=== PATIENT | female | born 1950 | race Caucasian/White ===

== ENCOUNTER 2020-08-21 04:32 | Emergency (ER) | payer MEDICARE, BC ==
[2020-08-21] MEDS ORDERED: Sodium Chloride 0.9% 1,000 ML IV SCH (05:00)
[2020-08-21] MEDS ORDERED: HYDROmorphone 0.5 MG/0.5 ML Syringe IVPUSH ONE (05:06)
[2020-08-21] MEDS ORDERED: Ondansetron 4 MG/2 ML SDV IVPUSH ONE (05:06)
--- NOTE | 2020-08-21 05:07 | EDM.PDOC ---
ED HPI GENERAL MEDICAL PROBLEM - General Chief Complaint: Gastrointestinal Problem Stated Complaint: throwing up water cant keep it down Time Seen by Provider: 08/21/20 04:45 Source of Information: Reports: Patient History Limitations: Reports: No Limitations - History of Present Illness INITIAL COMMENTS - FREE TEXT/NARRATIVE: This is a 70-year-old female. Onset about 3 days ago she started having some mild abdominal cramps nausea and vomiting and also some mild diarrhea. The nausea has been the worst. She tried to drink some water yesterday morning was unable to keep it down so she has been drinking much of anything and decides to come to the ER this morning. Denies any fever or chills. She does have some mild congestion and a dry cough but no headaches no sore throat no body aches no shortness of breath. Does complain of her back aching but she is not having any spasms. She has been laying around for the last 3 days and she believes that is why her back is aching. At 1 week ago she went to a football game was involved with the crowd even though she was wearing a mask but she does not aware that she was exposed to Covid. She states she does not feel like she is sick like Covid. She does have a history of breast cancer in June 2016 that is in remission. She has no history of congestive heart failure or cardiac problems. The patient states she has not been feeling well for about 7 days now. 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 Denies: Fever, Chills HEENT: Denies: Rhinitis Respiratory: Reports: Cough. Denies: Shortness of Breath, Wheezing, Sputum Cardiovascular: Reports: No Symptoms Endocrine: Reports: No Symptoms GI/Abdominal: Reports: Diarrhea, Nausea, Vomiting. Denies: Abdominal Pain : Denies: Dysuria Musculoskeletal: Reports: Back Pain Skin: Reports: No Symptoms Neurological: Reports: No Symptoms Psychiatric: Reports: No Symptoms Hematologic/Lymphatic: Reports: No Symptoms ED EXAM, GI/ABD - Physical Exam Exam: See Below Exam Limited By: No Limitations General Appearance: Alert, WD/WN, No Apparent Distress Eyes: Bilateral: Normal Appearance Ears: Normal External Exam, Normal Canal, Normal TMs Nose: Normal Inspection Throat/Mouth: Normal Inspection, Normal Lips, Normal Oropharynx, Normal Voice, No Airway Compromise, Other (Mucous membranes do appear to be moist) Head: Normocephalic Neck: Supple Respiratory/Chest: No Respiratory Distress, Lungs Clear, Normal Breath Sounds Cardiovascular: Regular Rate, Rhythm, No Murmur, Tachycardia GI/Abdominal Exam: Soft, Non-Tender, Other (She does complain of some mid abdominal soreness and occasional cramping.) Back Exam: Full Range of Motion Extremities: Normal Inspection, Normal Range of Motion Neurological: Alert, Oriented Psychiatric: Normal Affect, Normal Mood Skin Exam: Warm, Dry, Other (Her skin turgor is fair.) Course - Vital Signs Last Recorded V/S: Last Vital Signs Temp 97.1 F 08/21/20 04:47 Pulse 111 H 08/21/20 04:47 Resp 20 08/21/20 04:47 BP 173/103 H 08/21/20 04:47 Pulse Ox 96 08/21/20 04:47 - Orders/Labs/Meds Orders: Active Orders 24 hr Category Date Time Status CXR [Chest 1V Frontal] [CR] Stat Exams 08/21/20 06:18 Taken Lactated Ringers [Ringers, Lactated] 1,000 ml Med 08/21/20 06:30 Active IV ASDIRECTED Sodium Chloride 0.9% [Normal Saline] 1,000 ml Med 08/21/20 05:00 Active IV ASDIRECTED Medication Orders Sodium Chloride (Normal Saline) 1,000 mls @ 1,000 mls/hr IV ASDIRECTED BEE Last Admin: 08/21/20 05:22 Dose: 1,000 mls/hr Documented by: KAELA Lactated Ringer's (Ringers, Lactated) 1,000 mls @ 1,000 mls/hr IV ASDIRECTED BEE Last Admin: 08/21/20 06:27 Dose: 1,000 mls/hr Documented by: KAELA Labs: Laboratory Tests 08/21/20 08/21/20 08/21/20 Range/Units 05:08 05:08 05:08 WBC 5.73 (3.98-10.04) K/mm3 RBC 4.58 (3.98-5.22) M/mm3 Hgb 14.3 D (11.2-15.7) gm/dl Hct 42.4 (34.1-44.9) % MCV 92.6 D (79.4-94.8) fl MCH 31.2 (25.6-32.2) pg MCHC 33.7 (32.2-35.5) g/dl RDW Std Deviation 42.5 (36.4-46.3) fL Plt Count 168 L (182-369) K/mm3 MPV 10.1 (9.4-12.3) fl Neut % (Auto) 66.2 (34.0-71.1) % Lymph % (Auto) 21.5 (19.3-51.7) % [place] % (Auto) 11.0 (4.7-12.5) % Eos % (Auto) 0.7 (0.7-5.8) Baso % (Auto) 0.3 (0.1-1.2) % Neut # (Auto) 3.79 (1.56-6.13) K/mm3 Lymph # (Auto) 1.23 (1.18-3.74) K/mm3 [place] # (Auto) 0.63 H (0.24-0.36) K/mm3 Eos # (Auto) 0.04 (0.04-0.36) K/mm3 Baso # (Auto) 0.02 (0.01-0.08) K/mm3 Sodium 130 L (136-145) mEq/L Potassium 3.8 (3.5-5.1) mEq/L Chloride 94 L (98-107) mEq/L Carbon Dioxide 20 L (21-32) mEq/L Anion Gap 19.8 H (5-15) BUN 13 (7-18) mg/dL Creatinine 0.9 (0.55-1.02) mg/dL Est Cr Clr Drug Dosing 43.89 mL/min Estimated GFR (MDRD) > 60 (>60) mL/min BUN/Creatinine Ratio 14.4 (14-18) Glucose 128 H (80-115) mg/dL Calcium 8.2 L (8.5-10.1) mg/dL Magnesium 1.7 L (1.8-2.4) mg/dl Ferritin (8-252) ng/ml Total Bilirubin 0.5 (0.2-1.0) mg/dL AST 27 (15-37) U/L ALT 37 (14-59) U/L Alkaline Phosphatase 68 (46-116) U/L Lactate Dehydrogenase (81-234) U/L Troponin I (0.00-0.056) ng/mL C-Reactive Protein (<1.0) mg/dL Total Protein 7.3 (6.4-8.2) g/dl Albumin 3.7 (3.4-5.0) g/dl Globulin 3.6 gm/dL Albumin/Globulin Ratio 1.0 (1-2) Urine Color (Yellow) Urine Appearance (Clear) Urine pH (5.0-8.0) Ur Specific [place] (1.005-1.030) Urine Protein (Negative) Urine Glucose (UA) (Negative) Urine Ketones (Negative) Urine Occult Blood (Negative) Urine Nitrite (Negative) Urine Bilirubin (Negative) Urine Urobilinogen (0.2-1.0) Ur Leukocyte Esterase (Negative) Urine RBC (0-5) /hpf Urine WBC (0-5) /hpf Ur Squamous Epith Cells (0-5) /hpf Amorphous Sediment (NOT SEEN) /hpf Urine Bacteria (FEW) /hpf Urine Mucus (FEW) /hpf SARS-CoV-2 RNA (BESS) Positive H (NEGATIVE) 08/21/20 08/21/20 08/21/20 Range/Units 05:08 05:08 06:40 WBC (3.98-10.04) K/mm3 RBC (3.98-5.22) M/mm3 Hgb (11.2-15.7) gm/dl Hct (34.1-44.9) % MCV (79.4-94.8) fl MCH (25.6-32.2) pg MCHC (32.2-35.5) g/dl RDW Std Deviation (36.4-46.3) fL Plt Count (182-369) K/mm3 MPV (9.4-12.3) fl Neut % (Auto) (34.0-71.1) % Lymph % (Auto) (19.3-51.7) % [place] % (Auto) (4.7-12.5) % Eos % (Auto) (0.7-5.8) Baso % (Auto) (0.1-1.2) % Neut # (Auto) (1.56-6.13) K/mm3 Lymph # (Auto) (1.18-3.74) K/mm3 [place] # (Auto) (0.24-0.36) K/mm3 Eos # (Auto) (0.04-0.36) K/mm3 Baso # (Auto) (0.01-0.08) K/mm3 Sodium (136-145) mEq/L Potassium (3.5-5.1) mEq/L Chloride (98-107) mEq/L Carbon Dioxide (21-32) mEq/L Anion Gap (5-15) BUN (7-18) mg/dL Creatinine (0.55-1.02) mg/dL Est Cr Clr Drug Dosing mL/min Estimated GFR (MDRD) (>60) mL/min BUN/Creatinine Ratio (14-18) Glucose (80-115) mg/dL Calcium (8.5-10.1) mg/dL Magnesium (1.8-2.4) mg/dl Ferritin 847 H (8-252) ng/ml Total Bilirubin (0.2-1.0) mg/dL AST (15-37) U/L ALT (14-59) U/L Alkaline Phosphatase (46-116) U/L Lactate Dehydrogenase 216 (81-234) U/L Troponin I < 0.017 (0.00-0.056) ng/mL C-Reactive Protein 1.3 H* (<1.0) mg/dL Total Protein (6.4-8.2) g/dl Albumin (3.4-5.0) g/dl Globulin gm/dL Albumin/Globulin Ratio (1-2) Urine Color Yellow (Yellow) Urine Appearance Clear (Clear) Urine pH 6.5 (5.0-8.0) Ur Specific [place] 1.015 (1.005-1.030) Urine Protein Negative (Negative) Urine Glucose (UA) Negative (Negative) Urine Ketones 2+ H (Negative) Urine Occult Blood Negative (Negative) Urine Nitrite Negative (Negative) Urine Bilirubin Negative (Negative) Urine Urobilinogen 0.2 (0.2-1.0) Ur Leukocyte Esterase Negative (Negative) Urine RBC 0-5 (0-5) /hpf Urine WBC 0-5 (0-5) /hpf Ur Squamous Epith Cells 0-5 (0-5) /hpf Amorphous Sediment Few H (NOT SEEN) /hpf Urine Bacteria Few (FEW) /hpf Urine Mucus Not seen (FEW) /hpf SARS-CoV-2 RNA (BESS) (NEGATIVE) Meds: Medications Generic Name Dose Route Start Last Admin Trade Name Freq PRN Reason Stop Dose Admin Sodium Chloride 1,000 mls @ 1,000 mls/hr 08/21/20 05:00 08/21/20 05:22 Normal Saline IV 1,000 mls/hr ASDIRECTED BEE Administration Lactated Ringer's 1,000 mls @ 1,000 mls/hr 08/21/20 06:30 08/21/20 06:27 Ringers, Lactated IV 1,000 mls/hr ASDIRECTED BEE Administration Discontinued Medications Generic Name Dose Route Start Last Admin Trade Name Freq PRN Reason Stop Dose Admin Hydromorphone HCl 0.5 mg 08/21/20 05:06 08/21/20 05:22 Dilaudid IVPUSH 08/21/20 05:07 0.5 mg ONETIME ONE Administration Lactated Ringer's Confirm 08/21/20 06:22 08/21/20 06:47 Ringers, Lactated Administered 08/21/20 06:23 Not Given Dose 1,000 mls @ as directed .ROUTE .STK-MED ONE Ondansetron HCl 4 mg 08/21/20 05:06 08/21/20 05:22 Zofran IVPUSH 08/21/20 05:07 4 mg ONETIME ONE Administration - Radiology Interpretation Free Text/Narrative:: Chest x-ray does not show any significant acute infiltrates. Radiologist x-ray suggest an opacity of some sort in the left base possibly atelectasis but no acute infiltrates. - Re-Assessments/Exams Free Text/Narrative Re-Assessment/Exam: 08/21/20 05:07 I am getting a 1 hour Covid test on this patient because at the age of 70 being around a large crowd at a football game could certainly have exposed her to the Covid virus. Frequently elderly people can start out with GI symptoms due to the Covid virus. I would not want to send her home without knowing whether she is Covid positive since she is in the age group that does not fare well if she is Covid positive. 08/21/20 06:21 The patient is Covid positive. She is also dehydrated with an elevated anion gap. The rest of her electrolytes look within normal limits. Her CBC appears to be within normal limits other than a slightly low platelet count of 168. I will get some additional labs to check on the Covid status. She seems to be doing just fine in the room she has had no more nausea or vomiting. She states she is actually feeling better after that liter of fluids. We will put another liter of fluids on her. 08/21/20 07:25 Spoke to the patient regarding her test results to confirm that she is dehydrated with an anion gap of 19.8. Her sodium is slightly low and her parameters in the blood for Covid are mildly elevated. She does not appear to have a severe reaction to the Covid virus at this time. I am going to send her home with some Zofran and some Bentyl to help with the nausea and vomiting and the abdominal cramps and diarrhea. The patient is comfortable going home. I am also going to suggest that she drink some juice or Gatorade or something with some sodium and electrolytes to help with that slightly low sodium. Departure - Departure Time of Disposition: 07:39 Disposition: Home, Self-Care 01 Condition: Fair Clinical Impression: Real time reverse transcriptase PCR positive for COVID-19 virus, Hyponatremia Nausea & vomiting Qualifiers: Vomiting type: unspecified Vomiting Intractability: non-intractable Qualified Code(s): R11.2 - Nausea with vomiting, unspecified Diarrhea Qualifiers: Diarrhea type: unspecified type Qualified Code(s): R19.7 - Diarrhea, unspecified - Discharge Information *PRESCRIPTION DRUG MONITORING PROGRAM REVIEWED*: Not Applicable *COPY OF PRESCRIPTION DRUG MONITORING REPORT IN PATIENT [place]: Not Applicable Prescriptions: Dicyclomine [Bentyl] 20 mg PO Q8H PRN #20 tablet PRN Reason: Diarrhea Ondansetron [Zofran] 4 mg PO Q6H PRN #20 tab PRN Reason: Nausea Instructions: COVID-19 Frequently Asked Questions, Dehydration, Elderly, [id number], Nausea and Vomiting, Adult, [id number] Referrals: Kimberly Brandon MD [Primary Care Provider] - Forms: ED Department Discharge Additional Instructions: You have been diagnosed with COVID-19, your symptoms appear to be mainly nausea vomiting and diarrhea, you were going to be provided with prescription for Zofran for the nausea and vomiting and Bentyl for the belly cramps and diarrhea, it is very important that you drink fluids with small sips very frequently and not try to drink a lot of fluids all at once. Also besides water consider drinking juices and Gatorade or Powerade to add to the electrolytes that you are losing. You are approximately 5 to 7 days into your illness so you need to self quarantine for an additional 10 days to be safe so you will not pass this infection to others. If you continue to have symptoms and are not able to keep fluids down or your symptoms worsen especially with shortness of breath or fever you need to return to the ER for reevaluation. Once your self quarantine is over follow-up with your family doctor but make sure you let them know that you are COVID-19 positive and you have gotten out of quarantine before you go to their office. Sepsis Event Note (ED) - Evaluation Sepsis Screening Result: No Definite Risk - Focused Exam Vital Signs: Vital Signs Temp Pulse Resp BP Pulse Ox 08/21/20 04:47 97.1 F 111 H 20 173/103 H 96 - My Orders Last 24 Hours: My Active Orders 08/21/20 05:00 Sodium Chloride 0.9% [Normal Saline] 1,000 ml IV ASDIRECTED 08/21/20 06:18 CXR [Chest 1V Frontal] [CR] Stat 08/21/20 06:30 Lactated Ringers [Ringers, Lactated] 1,000 ml IV ASDIRECTED - Assessment/Plan Last 24 Hours: My Active Orders 08/21/20 05:00 Sodium Chloride 0.9% [Normal Saline] 1,000 ml IV ASDIRECTED 08/21/20 06:18 CXR [Chest 1V Frontal] [CR] Stat 08/21/20 06:30 Lactated Ringers [Ringers, Lactated] 1,000 ml IV ASDIRECTED
[2020-08-21] MEDS ORDERED: Lactated Ringers 1,000 ML ONE (06:22)
[2020-08-21] MEDS ORDERED: Lactated Ringers 1,000 ML IV SCH (06:30)
[2020-08-21 08:25] VITALS: BP 125/74; PULSE 87
--- NOTE | 2020-08-23 09:37 | CR ---
PROCEDURE INFORMATION: Exam: XR Chest, 1 View Exam date and time: 08/21/2020 6:09 AM Age: 70 years old Clinical indication: Cough and shortness of breath; Patient HX: Nausea and vomiting, covid positive symptoms onset 7 days ago. Prior reports scanned for your review TECHNIQUE: Imaging protocol: XR of the chest Views: 1 view. COMPARISON: No relevant prior studies available. FINDINGS: Lungs: Opacity in the medial left base may represent atelectasis or pneumonia. . Pleural space: Unremarkable. No pleural effusion. No pneumothorax. Heart/Mediastinum: Unremarkable. No cardiomegaly. Bones/joints: Unremarkable. IMPRESSION: Opacity in the medial left base may represent atelectasis or pneumonia. . Thank you for allowing us to participate in the care of your patient. Dictated and Authenticated by: Víctor Richardson MD 08/21/2020 7:51 AM Central Time ([place] & [place]) JC
== END 2020-08-21 07:55 | disposition home or self-care (01) ==
LOC: JD.ED 04:32
DX: U07.1 COVID-19 (principal); E87.1 Hypo-osmolality and hyponatremia
CPT/HCPCS: 36415; 71045; 80053; 81001; 82728; 83615; 83735; 84484; 85025; 86140; 96374; 96375; 99284; J1170; J2405; J7030; J7120; U0002